=== PATIENT | male | born 1985 | race Two or more races ===

== ENCOUNTER 2018-04-23 21:55 | Emergency (ER) | payer BC ==
[~2018-04-23] VITALS: Ht 180.3 cm; Wt 93.0 kg
--- NOTE | 2018-04-23 21:57 | Emergency Room Report ---
History of Present Illness General Chief Complaint: Alcohol Intoxication Source: Patient, EMS Present Illness HPI Patient picked up at bar. Had been drinking. Was asleep and lethargic unable to ambulate. No trauma. No vomiting. Patient denies SI or HI. No h/o seizures, ulcers, DTs. No chest pain, melena, fevers, chills, joint pain, rashes. 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 Nursing Documentation: PMH: Agreed; PSxH: Agreed Nursing Documentation-PMH Past Medical History: No Stated History Review of Systems All Other Systems: negative except mentioned in HPI Physical Exam Vital Signs Date Time Temp Pulse Resp B/P (MAP) Pulse Ox O2 Delivery O2 Flow Rate FiO2 04/23/18 21:46 97.9 91 18 122/77 97 Room Air 97.9 Sp02 EP Interpretation: reviewed, normal General Appearance: well appearing, no apparent distress, lethargic - minimally , other - GCS 14, not remember being picked up Head: normocephalic, atraumatic Eyes: bilateral eye PERRL, bilateral eye Scleral Injection ENT: hearing grossly normal, normal voice, moist mucus membranes Neck: full range of motion, supple Respiratory: lungs clear, no respiratory distress, speaking full sentences Cardiovascular #1: regular rate, rhythm Gastrointestinal: normal bowel sounds, non tender, soft Musculoskeletal: digits/nails normal, gait/station normal, normal range of motion Neurologic: alert, oriented x3, high lift operator III-XII nml as tested, motor strength/tone normal, DTRs symmetric, sensory intact, normal gait - minimal ataxia, but steady Psychiatric: mood/affect normal Reflexes: 2+ knee (R), 2+ knee (L) Skin: no rash Medical Decision Making Diagnostic Impression: Primary Impression: Acute alcoholic intoxication Qualified Codes: F10.929 - Alcohol use, unspecified with intoxication, unspecified ER Course Patient with ALOC after alcohol. DDX: acute intoxication - now ambulatory. No evidence of head trauma. Denies SI. Family present and willing to observe. Discussed treatment plan. No medical emergency at this time. No evidence of SI ro withdrawal symptoms. Patient stable for outpatient observation and treatment. Last Vital Signs Date Time Temp Pulse Resp B/P (MAP) Pulse Ox O2 Delivery O2 Flow Rate FiO2 04/23/18 22:22 0/0 04/23/18 22:18 97.9 18 97 Room Air 97.9 04/23/18 21:46 91 Status: improved Disposition: HOME, SELF-CARE Condition: Stable Willy Mckeon M.D. Apr 23, 2018 21:57
[2018-04-23 22:18] VITALS: BP 122/77
[2018-04-23 22:22] VITALS: BP 0/0
== END 2018-04-23 22:20 | disposition home or self-care (01) ==
LOC: EDBD 21:55 → EMR 22:00
DX: F10.129 Alcohol abuse with intoxication, unspecified (principal)
CPT/HCPCS: 99282